=== PATIENT | female | born 1970 | race Caucasian/White ===

== ENCOUNTER 2017-05-31 18:13 | Emergency (ER) | payer MEDICAID ==
[~2017-05-31] VITALS: Ht 162.6 cm; Wt 85.0 kg
[~2017-05-31 18:13] MED LIST: [UNRECOGNIZED DRUG - REMARK]
[2017-05-31] MEDS ORDERED: SOD CHLORIDE 0.9% 1,000 ML IV STA (18:19)
[2017-05-31 18:25] VITALS: Ht 162.6 cm; Wt 85.0 kg
[2017-05-31] MEDS ORDERED: LORAZEPAM 0.5 MG TAB PO ONE (18:30)
[2017-05-31] MEDS ORDERED: INSULIN LISPRO 100 UNIT/ML VIAL SC STA (19:18)
[2017-05-31] MEDS ORDERED: ALPR0.5T PO (20:20)
[2017-05-31 20:30] VITALS: BP 141/76; PULSE 80; RESP 20
[2017-05-31] MEDS ORDERED: ACETAMINOPHEN 325 MG TAB ONE (20:36)
[2017-05-31] MEDS ORDERED: ACETAMINOPHEN 325 MG TAB PO ONE (21:00)
--- NOTE | 2017-07-28 15:53 | ERD ---
ER Documentation Chief Complaint Chief Complaint HPI 47yo F brought in by family after near-syncopal episode shortly after hearing about of family member. Episode was witnessed and there was no head or neck trauma, no seizure activity, no complaints of chest pain or presycopal SOB. No recent fevers/chills. ROS All systems reviewed and are negative except as per history of present illness. Medications Home Meds Active Scripts Alprazolam* (Xanax*) 0.5 Mg Tab, 0.5 MG PO TID for ANXIETY, #12 TAB Prov:HOLLY TENA MD 05/31/17 Reported Medications [unk names,pt does not know] No Conflict Check 01/23/13 Allergies Allergies: Uncoded Allergies: NONE (Allergy, Unknown, 05/31/17) PMhx/Soc DM, HTN History of Surgery: Yes (R hand) Anesthesia Reaction: No Hx Neurological Disorder: No Hx Respiratory Disorders: No Hx Cardiac Disorders: Yes (htn) Hx Psychiatric Problems: No Hx Alcohol Use: No Hx Substance Use: No Hx Tobacco Use: No Smoking Status: Never smoker FmHx Family History: No diabetes Physical Exam Vitals per nurses records Physical Exam Const: [Anxious appearing] Head: Atraumatic, no cervical spine deformity Eyes: Normal Conjunctiva ENT: Normal External Ears, Nose and Mouth. Neck: Full range of motion..~ No meningismus. Resp: Clear to auscultation bilaterally Cardio: Regular rate and rhythm, no murmurs Abd: Soft, non tender, non distended. Normal bowel sounds Skin: No petechiae or rashes Back: No midline or flank tenderness Ext: No cyanosis, or edema Neur: Awake and alert Psych: Appears anxious Results 24 hrs Laboratory Tests Test 05/31/17 18:21 05/31/17 18:30 05/31/17 18:45 05/31/17 19:51 Bedside Glucose 433mg/dL 283mg/dL White Blood Count 8.710^3/ul Red Blood Count 4.8310^6/ul Hemoglobin 12.4g/dl Hematocrit 39.2% Mean Corpuscular Volume 81.2fl Mean Corpuscular Hemoglobin 25.7pg Mean Corpuscular Hemoglobin Concent 31.6g/dl Red Cell Distribution Width 15.9% Platelet Count 12231^3/UL Mean Platelet Volume 11.6fl Neutrophils % 67.0% Lymphocytes % 25.7% Monocytes % 5.9% Eosinophils % 0.6% Basophils % 0.2% Nucleated Red Blood Cells % 0.0/100WBC Neutrophils # (Manual) 5.810^3/ul Lymphocytes # 2.210^3/ul Monocytes # 0.510^3/ul Eosinophils # 0.110^3/ul Basophils # 0.010^3/ul Nucleated Red Blood Cells # 0.010^3/ul Sodium Level 135mmol/L Potassium Level 4.7mmol/L Chloride Level 102mmol/L Carbon Dioxide Level 23mmol/L Anion Gap 15 Blood Urea Nitrogen 9mg/dl Creatinine 0.56mg/dl Glucose Level 471mg/dl Calcium Level 9.0mg/dl Total Bilirubin 0.2mg/dl Direct Bilirubin 0.00mg/dl Indirect Bilirubin 0.2mg/dl Aspartate Amino Transf (AST/SGOT) 21IU/L Alanine Aminotransferase (ALT/SGPT) 31IU/L Alkaline Phosphatase 132IU/L Troponin I < 0.012ng/ml Total Protein 7.1g/dl Albumin 3.9g/dl Globulin 3.20g/dl Albumin/Globulin Ratio 1.21 Lipase 152U/L Urine Color STRAW Urine Clarity CLEAR Urine pH 6.0 Urine Specific T[place]ill 1.036 Urine Ketones NEGATIVEmg/dL Urine Nitrite NEGATIVEmg/dL Urine Bilirubin NEGATIVEmg/dL Urine Urobilinogen NEGATIVEmg/dL Urine Leukocyte Esterase NEGATIVELeu/ul Urine Hemoglobin NEGATIVEmg/dL Urine Glucose 3+mg/dL Urine Total Protein NEGATIVEmg/dl Current Medications Medications (Trade) Dose Ordered Sig/Genaro Route PRN Reason Start Time Stop Time Status Last Admin Dose Admin Lorazepam 0.5 mg 0.5 mg ONCE ONCE PO 05/31/17 18:30 05/31/17 18:31 DC 05/31/17 18:56 Sodium Chloride (NS) 1,000 ml @ 1,000 mls/hr Q1H STAT IV 05/31/17 18:19 05/31/17 19:18 DC 05/31/17 18:58 Insulin Human Lispro (Humalog) 12 unit ONCE STAT SC 05/31/17 19:18 05/31/17 19:19 DC 05/31/17 19:54 Acetaminophen (Tylenol Tab) 650 mg ONCE ONCE PO 05/31/17 21:00 05/31/17 21:01 DC 05/31/17 20:38 Acetaminophen (Tylenol Tab) 325 mg STK-MED ONCE .ROUTE 05/31/17 20:36 05/31/17 20:37 DC Departure Diagnosis: Primary Impression: Anxiety in acute stress reaction Condition: Good Patient Instructions: Hyperglycemia (High Blood Sugar), Grief and Loss HOLLY TENA MD Jul 28, 2017 15:53
== END 2017-05-31 21:00 | disposition home or self-care (01) ==
LOC: E/R 18:13
DX: F43.0 Acute stress reaction (principal); I10 Essential (primary) hypertension; E11.9 Type 2 diabetes mellitus without complications
CPT/HCPCS: 80053; 81003; 82962; 83690; 84484; 85025; 93005; J1815; J7030; Z7610; 36415; 96372